=== PATIENT | female | born 1935 | race Caucasian/White ===

== ENCOUNTER 2024-11-26 11:00 | Outpatient (REF) | payer MEDICARE, SELFPAY ==
[2024-11-26 11:28] LABS: Glucose Urine UA NEGATIVE (NEGATIVE)
== END 2024-11-26 11:01 | disposition home or self-care (01) ==
LOC: LAB 11:00
DX: R30.0 Dysuria (principal)
CPT/HCPCS: 81003; 87086